=== PATIENT | male | born 1975 | race Caucasian/White ===

== ENCOUNTER 2020-01-26 00:27 | Emergency (ER) | payer MEDICAID, SELFPAY ==
--- NOTE | ~2020-01-26 | CT_ITS ---
EXAMINATION: CT brain wo con DATE: 01/26/2020 03:02 INDICATION: Headache TECHNIQUE: Computed tomography (CT) of the head was performed without intravenous contrast. Sagittal and coronal reconstructions were performed. The mA was adjusted according to patient size. Iterative reconstruction technique was employed. The dose-length product was 681.00 mGy-cm. COMPARISON: None FINDINGS: No acute intracranial hemorrhage, acute infarction or abnormal extra axial fluid collection. Ventricl es are normal and symmetric. No mass/mass effect. The orbits, paranasal sinuses and mastoid air cells are normal. IMPRESSION: 1. No acute intracranial process. Reviewed, dictated and finalized at location A.
[2020-01-26 00:28] VITALS: BP 187/128; PULSE 102; RESP 18; TEMP 36.1; O2SAT 98
[2020-01-26 01:16] VITALS: BP 148/98; PULSE 95; RESP 17; O2SAT 97
[2020-01-26 02:00] VITALS: BP 149/111; PULSE 88; RESP 17; O2SAT 99
[2020-01-26] MEDS: KETOROLAC (*BKC) 60 MG/2 ML VIAL IM (02:24)
[2020-01-26 02:26] VITALS: BP 156/107; PULSE 81; RESP 16; O2SAT 100
--- NOTE | 2020-01-26 03:49 | ED.HA ---
HPI - Headache General Chief Complaint: Headache Stated Complaint: headache for two days Time Seen by Provider: 01/26/20 01:58 History of Present Illness HPI Narrative: Patient is a 44-year-old male who presents ER with headache. Bitemporal. Intermittent. Worse with exertion. No change in vision or hearing. Occasional nausea. No photophobia or phonophobia. No trauma. No thunderclap sensation. Patient has chronic sinus disease but denies any recent change. Patient does report he has a bad tooth that was actually extracted earlier in the day. No additional jaw pain or swelling. Afebrile. Related Data Home Medications Medication Instructions Recorded Confirmed No Home Medications 01/26/20 01/26/20 Allergies Allergy/AdvReac Type Severity Reaction Status Date / Time No Known Allergies Allergy Unknown Verified 01/26/20 00:27 Review of Systems Review of Systems: All systems reviewed & are unremarkable except as noted in HPI and below Constitutional: Constitutional: Denies chills, Denies fever(s) and Denies weakness Eyes: Eyes: Denies change in vision and Denies photophobia ENT: Denies dizziness, Denies nasal congestion and Denies sore throat Comments: Recent dental procedure Gastrointestinal: Gastrointestinal: Denies nausea and Denies vomiting Neurologic: Denies dizziness, Reports headache(s), Denies focal weakness and Denies numbness PMFSH Past Medical History Medical History (Updated 01/26/20 @ 04:01 by Bryn Elizabeth MD) Sinusitis Surgical History Surgical History (Updated 01/26/20 @ 03:58 by Bryn Elizabeth MD) No pertinent past surgical history Social History Social History (Updated 01/26/20 @ 03:59 by Bryn Elizabeth MD) Smoking status: Current every day smoker Gender identity (if verbalized by the patient): Male Exam Narrative: Exam Narrative: GENERAL: Well-appearing, well-nourished, and in no acute distress. HEAD: Normocephalic, atraumatic. EYES: PERRL and EOMI. ENT: Mucous membranes moist. Healing tooth extraction site left lower jaw. CHEST: Clear to auscultation. No respiratory distress. HEART: Regular rate and rhythm. Normal peripheral pulses. NEURO: Alert and oriented x3. PSYCH: Normal mood and affect. Course Course Emergency Course: Headache resolved with Toradol IM. Discussed patient's elevated blood pressures recommend follow-up with PCP. Also discussed smoking cessation. Patient verbalized understanding. Vital Signs Vital signs: Vital Signs Temperature 97 F L 01/26/20 00:28 Pulse Rate 102 H 01/26/20 00:28 Respiratory Rate 18 01/26/20 00:28 Blood Pressure 187/128 H 01/26/20 00:28 Pulse Oximetry 98 01/26/20 00:28 Temperature 97 F L 01/26/20 00:28 Pulse Rate 81 01/26/20 02:26 Respiratory Rate 16 01/26/20 02:26 Blood Pressure 156/107 H 01/26/20 02:26 Pulse Oximetry 100 01/26/20 02:26 MDM - Headache Imaging Data Radiologist's impression: CT brain: No acute intracranial process. Discharge Plan Discharge Clinical Impression: Headache, Elevated blood pressure reading Patient Disposition: Home, Self-Care Condition: Stable Instructions: Tension Headache (ED) Additional Instructions: Return to the ER if you have fever over 100.4 ?F, you have chest pain or shortness of breath, cannot keep down food or water, you have additional concerns. Prescriptions: No Action No Home Medications RF: 0 Follow-up/Referrals: Ilia Richards Jr., MD [Physician] - 1 Week PHYSICIAN,MATERIALS HANDLING COORDINATOR [Primary Care Provider] -
[2020-01-26 04:12] VITALS: BP 144/86; PULSE 73; RESP 16; TEMP 36.7; O2SAT 97
== END 2020-01-26 04:13 | disposition home or self-care (01) ==
PROVIDERS: Emergency Provider Emergency Medicine
DX: R51 Headache (principal); R03.0 Elevated blood-pressure reading, without diagnosis of hypertension; F17.210 Nicotine dependence, cigarettes, uncomplicated
CPT/HCPCS: 70450; 96372; 99284; J1885

== ENCOUNTER 2021-04-09 12:42 | Outpatient (CLI) | payer OTHER, SELFPAY ==
--- NOTE | ~2021-04-09 | MR_ITS ---
EXAMINATION: MR brain/brain stem wo/w con DATE: 04/09/2021 14:10 INDICATION: Headache, unspecified. TECHNIQUE: Magnetic resonance imaging (MRI) of the brain and brainstem was performed without and with 20 mL MultiHance intravenous contrast. Sequences included sagittal and axial T1-weighted FSE, axial diffusion-weighted FS EPI, axial T2*-weighted GRE, axial T2-weighted FLAIR Propeller, and axial T2-we ighted Propeller. Postcontrast sequences included axial and coronal T1-weighted FSE. Apparent diffusi on coefficient (ADC) maps were created. COMPARISON: Head CT 01/26/20 FINDINGS: There are scattered areas of nonspecific increased T2-weighted signal intensity in the cere bral white matter, which is within normal limits for the patient's age. There is no intracranial hemo rrhage, acute infarction, or abnormal intracranial mass lesion. The ventricles are normal in size. Th e paranasal sinuses are clear. The orbits are normal. The mastoid air cells are normal. IMPRESSION: 1. Normal brain. Reviewed, dictated and finalized at location A. IMPRESSION: 1. Normal brain.
[2021-04-09 13:42] LABS: Estimated Glomerular Filt Rate > 60
== END 2021-04-09 12:43 | disposition home or self-care (01) ==
PROVIDERS: PCP Internal Medicine; Visit Provider Nurse Practitioner
DX: R51.9 Headache, unspecified (principal)
CPT/HCPCS: 70553; A9577

== ENCOUNTER 2021-05-09 08:01 | Outpatient (CLI) | payer OTHER, SELFPAY ==
[2021-05-09 08:14] LABS: Basophils Absolute Auto 0.1 K/mm3 (0.0-0.1); Basophils Percent Auto 0.7 % (0.2-1.2); Eosinophils Absolute Auto 0.4 K/mm3 (0-0.3); Eosinophils Percent Auto 2.8 % (0-4.4); Hematocrit 48.3 % (42.0-52.0); Immature Granulocyte Absolute 0.19 K/mm3 (0.00-0.031); Immature Granulocyte Percent A 1.4 % (0-0.5); Lymphocytes Percent Auto 34.3 % (18.3-44.2); Mean Corpuscular HGB Conc 33.1 g/dl (32-36); Mean Corpuscular Hemoglobin 29.3 pg (26-34); Mean Corpuscular Volume 88.5 fl (80-100); Mean Platelet Volume 8.6 fl (7.4-10.4); Monocytes Absolute Auto 1.3 K/mm3 (0.1-0.6); Neutrophils Absolute Auto 6.8 K/mm3 (1.3-6.7); Neutrophils Percent Auto 50.8 % (45.5-73.1); Platelet Count Result 340 k/mm3 (150-375); Red Blood Count 5.46 M/mm3 (4.6-6.20); Red Cell Distribution Width 13.2 % (11.5-14.5); White Blood Count 13.4 K/mm3 (4.5-10.0)
[2021-05-09 08:27] LABS: Alanine Aminotransferase 77 U/L (4-50); Albumin Level 4.6 g/dL (3.5-5.1); Alkaline Phosphatase 88 U/L (38-126); Anion Gap 8 mmol/L (8-16); Aspartate Amino Transferase 38 U/L (17-59); Bilirubin,Total 0.4 mg/dL (0.2-1.3); Blood Urea Nitrogen 13 mg/dL (9-20); Calcium 9.4 mg/dL (8.4-10.2); Carbon Dioxide 27 mmol/L (22-30); Chloride 105 mmol/L (98-107); Cholesterol 178 mg/dL (0-200); Estimated Glomerular Filt Rate > 60; Glucose 105 mg/dL (65-110); HDL Direct 30 mg/dL; Potassium 4.2 mmol/L (3.4-5.0); Sodium 140 mmol/L (137-145); Triglycerides 154 mg/dL (<150)
[2021-05-09 08:39] LABS: LDL Cholesterol Direct 132 mg/dL
== END 2021-05-09 08:02 | disposition home or self-care (01) ==
PROVIDERS: PCP Internal Medicine; Visit Provider Nurse Practitioner
DX: I10 Essential (primary) hypertension (principal)
CPT/HCPCS: 36415; 80053; 80061; 85025

== ENCOUNTER 2021-05-29 07:46 | Outpatient (CLI) | payer OTHER, SELFPAY ==
--- NOTE | ~2021-05-29 | US_ITS ---
EXAMINATION: US soft tissue abdomen EXAM DATE: 05/29/2021 08:53 INDICATION: R22.9 - Localized swelling, mass and lump, unspecified abdomen. TECHNIQUE: Multiple grayscale and Doppler images of the abdominal symptomatic regions were obtained ( by a technologist who performed the scan) and subsequently reviewed. There is no prior study for shavon patel. FINDINGS: Scanning in areas of patient's concern demonstrates the subcutaneous regions which are isoechoic to p atient's fat, could be encapsulated lipomas. These were measured at 1.7 x 1.6 x 0.8 cm, 6 x 7 x 7 mm, and possibly a 3rd measuring 1.9 x 1.0 x 1.9 cm. The underlying musculature is unremarkable. IMPRESSION: 3 focal abdominal subcutaneous regions which could be encapsulated lipomas. Reviewed, dictated and finalized at location B.
--- NOTE | ~2021-05-29 | US_ITS ---
EXAMINATION: US soft tissue UE RT EXAM DATE: 05/29/2021 08:53 INDICATION: R22.9 - Localized swelling, mass and lump, unspecified. TECHNIQUE: Multiple grayscale and Doppler images of the symptomatic right upper arm region were obtai renee (by a technologist who performed the scan) and subsequently reviewed. There is no prior study fo r comparison. FINDINGS: Scanning in the area of concern demonstrates a focal subcutaneous region which is isoechoic to the pearce rrounding fat, measuring 1.3 cm in thickness by about 4 cm in diameter. Appearance is most consistent with an encapsulated lipoma. IMPRESSION: Focal left arm lobulation of fat echogenicity which could be encapsulated lipoma. Reviewed, dictated and finalized at location B. IMPRESSION: Focal left arm lobulation of fat echogenicity which could be encaps ulated lipoma.
[2021-05-29 08:50] LABS: Basophils Absolute Auto 0.1 K/mm3 (0.0-0.1); Basophils Percent Auto 0.9 % (0.2-1.2); Eosinophils Absolute Auto 0.3 K/mm3 (0-0.3); Eosinophils Percent Auto 2.2 % (0-4.4); Hemoglobin 15.7 g/dL (14.0-18.0); Immature Granulocyte Absolute 0.26 K/mm3 (0.00-0.031); Immature Granulocyte Percent A 1.8 % (0-0.5); Lymphocytes Absolute Auto 4.25 K/mm3 (0.9-3.2); Lymphocytes Percent Auto 29.5 % (18.3-44.2); Mean Corpuscular HGB Conc 34.1 g/dl (32-36); Mean Corpuscular Hemoglobin 29.3 pg (26-34); Mean Platelet Volume 8.6 fl (7.4-10.4); Monocytes Absolute Auto 1.3 K/mm3 (0.1-0.6); Monocytes Percent Auto 9.2 % (2.6-8.5); Neutrophils Absolute Auto 8.1 K/mm3 (1.3-6.7); Neutrophils Percent Auto 56.4 % (45.5-73.1); Platelet Count Result 391 k/mm3 (150-375); Red Blood Count 5.35 M/mm3 (4.6-6.20); Red Cell Distribution Width 12.9 % (11.5-14.5); White Blood Count 14.4 K/mm3 (4.5-10.0)
[2021-05-29 09:49] LABS: Atypical Lymphocytes Present
== END 2021-05-29 07:47 | disposition home or self-care (01) ==
LOC: ANHIMG 07:53
PROVIDERS: PCP Internal Medicine; Visit Provider Nurse Practitioner
DX: D72.829 Elevated white blood cell count, unspecified (principal); R22.9 Localized swelling, mass and lump, unspecified
CPT/HCPCS: 36415; 76705; 76882; 85025

== ENCOUNTER 2021-08-29 13:32 | Outpatient (CLI) | payer OTHER, SELFPAY ==
[2021-08-29 14:24] LABS: Basophils Absolute Auto 0.1 K/mm3 (0.0-0.1); Basophils Percent Auto 0.9 % (0.2-1.2); Eosinophils Absolute Auto 0.2 K/mm3 (0-0.3); Eosinophils Percent Auto 1.8 % (0-4.4); Hematocrit 46.8 % (42.0-52.0); Hemoglobin 16.1 g/dL (14.0-18.0); Immature Granulocyte Absolute 0.21 K/mm3 (0.00-0.031); Immature Granulocyte Percent A 1.8 % (0-0.5); Lymphocytes Absolute Auto 3.17 K/mm3 (0.9-3.2); Lymphocytes Percent Auto 27.4 % (18.3-44.2); Mean Corpuscular HGB Conc 34.4 g/dl (32-36); Mean Corpuscular Hemoglobin 29.3 pg (26-34); Mean Corpuscular Volume 85.1 fl (80-100); Mean Platelet Volume 8.8 fl (7.4-10.4); Monocytes Absolute Auto 1.1 K/mm3 (0.1-0.6); Monocytes Percent Auto 9.8 % (2.6-8.5); Neutrophils Absolute Auto 6.7 K/mm3 (1.3-6.7); Neutrophils Percent Auto 58.3 % (45.5-73.1); Platelet Count Result 340 k/mm3 (150-375); Red Cell Distribution Width 12.5 % (11.5-14.5); White Blood Count 11.6 K/mm3 (4.5-10.0)
[2021-08-29 14:41] LABS: Alanine Aminotransferase 89 U/L (4-50); Albumin Level 4.5 g/dL (3.5-5.1); Alkaline Phosphatase 93 U/L (38-126); Anion Gap 9 mmol/L (8-16); Aspartate Amino Transferase 52 U/L (17-59); Bilirubin,Total 0.8 mg/dL (0.2-1.3); Blood Urea Nitrogen 13 mg/dL (9-20); CRP 0.6 mg/dL (<1.0); Calcium 9.4 mg/dL (8.4-10.2); Carbon Dioxide 29 mmol/L (22-30); Chloride 101 mmol/L (98-107); Estimated Glomerular Filt Rate > 60; Glucose 114 mg/dL (65-110); Potassium 4.5 mmol/L (3.4-5.0); Sodium 139 mmol/L (137-145)
[2021-08-29 14:49] LABS: Erythrocyte Sedimentation Rate 1 mm/hr (0-20)
[2021-09-01 15:26] LABS: BCR/abl Prior Result Not Given
[2021-09-01 16:12] LABS: BCR/abl P190 Not Detected; BCR/abl P210 Not Detected
[2021-09-01 16:13] LABS: BCR/abl P190 Chg YES; BCR/abl P210 Chg YES
== END 2021-08-29 13:33 | disposition home or self-care (01) ==
LOC: ANHLAB 13:34
PROVIDERS: PCP Internal Medicine; Visit Provider Internal Medicine Hematology & Oncology
DX: D72.829 Elevated white blood cell count, unspecified (principal)
CPT/HCPCS: 36415; 80053; 81206; 81207; 85025; 85652; 86140; 88184

== ENCOUNTER 2023-12-07 22:38 | Observation (INO) | payer OTHER, SELFPAY ==
--- NOTE | ~2023-12-07 | XR_ITS ---
EXAMINATION: XR chest 1V portable DATE: 12/07/2023 23:22 INDICATION: Weakness. TECHNIQUE: A single frontal view of the chest was obtained. COMPARISON: Chest single view 12/14/2012 FINDINGS: There is no pneumonia, pleural effusion, or pneumothorax. The heart size is normal. IMPRESSION: 1. No acute cardiopulmonary disease. Reviewed, dictated and finalized at location A.
--- NOTE | ~2023-12-07 | CT_ITS ---
EXAMINATION: CTA brain carotid DATE: 12/07/2023 23:15 INDICATION: Left hemiparesis. TECHNIQUE: Computed tomographic angiography (CTA) of the head was performed with 100 mL Omnipaque-350 intravenous contrast. CTA of the neck was performed with intravenous contrast. Automated exposure co ntrol and iterative reconstruction technique were employed. The dose-length product was 1275.34 mGy-c m. Maximum intensity projection and volume rendered 3D-reconstructions were created by the technInfopiai st on a separate workstation. COMPARISON: Head CT 12/07/2023 FINDINGS: HEAD CTA: There is no intracranial hemorrhage, acute infarction, or abnormal intracranial mass lesion . The ventricles are normal in size. The orbits are normal. There is mild mucosal thickening in the p aranasal sinuses. The mastoid air cells are normal. The vertebral arteries are codominant. There is n o significant stenosis of basilar artery or the posterior cerebral arteries. There is no significant stenosis of the intracranial internal carotid arteries or anterior or middle cerebral arteries. Anter ior communicating artery is normal. The posterior communicating arteries are normal. There is no aneu rysm. NECK CTA: There are no pathologically enlarged lymph nodes. There is multifocal dental disease. There is no significant stenosis of the vertebral arteries. There is mild plaque in the proximal internal carotid arteries. There is 0% stenosis of the proximal right internal carotid artery relative to norm al distal artery lumen diameter (NASCET criteria). There is 0% stenosis of the proximal left internal carotid artery relative to normal distal artery lumen diameter. There is mild cervical spondylosis. IMPRESSION: 1. Normal brain. No aneurysm or significant intracranial canal stenosis. 2. 0% stenosis of the proximal internal carotid arteries relative to normal distal artery lumen diame ters (NASCET criteria). 3. Extensive dental disease. Reviewed, dictated and finalized at location A. IMPRESSION: 1. Normal brain. No aneurysm or significant intracranial canal stenosis. 2. 0% stenosis of the proximal internal carotid arteries relative to normal dis alessia artery lumen diameters (NASCET criteria). 3. Extensive dental disease.
--- NOTE | ~2023-12-07 | MR_ITS ---
MRI of the brain Clinical History: CVA Technique: Axial and sagittal T1-weighted images were acquired. These were followed by axial T2-weigh praneeth, diffusion weighted, gradient, and FLAIR images. COMPARISON: 04/09/2021 Findings: There is a 1.3 x 1.1 cm area of acute infarct involving the right thalamus and/or posterior limb of the external capsule. No intracranial hemorrhage identified. There are minimal chronic backg round white matter changes in the periventricular white matter otherwise. Ventricles and subarachnoid spaces are unremarkable. Orbits are unremarkable. Paranasal sinuses and m astoid air cells are clear. Major intracranial flow voids are intact. Sagittal midline structures are intact. IMPRESSION: 1.3 x 1.1 cm acute infarct involving the right thalamus and/or posterior limb of the right external c apsule. Minimal background chronic white matter changes. Reviewed, dictated and finalized at location . IMPRESSION: 1.3 x 1.1 cm acute infarct involving the right thalamus and/or posterior limb o f the right external capsule. Minimal background chronic white matter changes.
--- NOTE | ~2023-12-07 | CT_ITS ---
EXAMINATION: CT brain wo con DATE: 12/07/2023 22:57 INDICATION: Numbness in the extremities. Left-sided weakness. TECHNIQUE: Computed tomography (CT) of the head was performed without intravenous contrast. The mA wa s adjusted according to patient size. Iterative reconstruction technique was employed. The dose-lengt h product was 681.00 mGy-cm. COMPARISON: Head CT 01/26/2020 FINDINGS: There is no intracranial hemorrhage, acute infarction, or abnormal intracranial mass lesion . The ventricles are normal in size. The orbits are normal. There is mild mucosal thickening in the p aranasal sinuses. The mastoid air cells are normal. IMPRESSION: 1. Normal brain. Reviewed, dictated and finalized at location A. IMPRESSION: 1. Normal brain.
--- NOTE | ~2023-12-07 | US_ITS ---
EXAMINATION: US right upper quadrant DATE: 12/08/2023 15:05 INDICATION: Elevated ALT TECHNIQUE: Multiple grayscale and Doppler ultrasound images of the abdomen were obtained. COMPARISON: None FINDINGS: The region of the pancreas is obscured. Visualized portions of the abdominal aorta appear normal in c aliber. The visualized proximal inferior vena cava appears normal. Liver has normal contour, with a s mooth surface. There is increased parenchymal echogenicity and coarsened echotexture with poor acoust ic penetration consistent with diffuse hepatic steatosis. Typical small geographic regions of more hy poechoic focal fatty sparing along the gallbladder fossa. There is also a 1.4 similar anechoic hepati c cyst. No intrahepatic biliary duct dilation suspected. Portal venous flow was seen in the hepatopet al, normal direction and has normal Doppler waveform. The gallbladder is normal in appearance. There is no cholelithiasis. The common bile duct measures 4 mm, which is normal. Sonographic Fuentes sign w as reported as negative by the dispatcher relay. IMPRESSION: 1. Diffuse hepatic steatosis. No cholelithiasis or intra- or extrahepatic biliary ductal dilation. Reviewed, dictated and finalized at location A. IMPRESSION: 1. Diffuse hepatic steatosis. No cholelithiasis or intra- or extrahepatic bilia ry ductal dilation.
--- NOTE | 2023-12-07 22:41 | ECG_ITS ---
SEE SCANNED COPY FOR CONFIRMED REPORT MTDD
[2023-12-07 22:44] LABS: Glucose Point of Care 152 mg/dl (65-105)
[2023-12-07 22:59] LABS: Estimated Glomerular Filt Rate > 60
--- NOTE | 2023-12-07 22:59 | ED.GENADULT ---
HPI - General Adult General Chief complaint: Neuro Symptoms/Deficit Stated complaint: Left sided cant control Time Seen by Provider: 12/07/23 22:45 History of Present Illness HPI narrative: Patient 48-year-old gentleman presents emergency department with chief complaint of left lower extremity weakness. Patient reports around 5:00 p.m. yesterday he had an episode where his left leg started feeling heavy and not really were the patient reports that he laid down his symptoms improved patient reports that he thinks most of his symptoms had resolved but was complete was unsure patient states around 7:00 p.m. tonight he noticed that his left leg was difficulty use. The patient states that upon arrival to the emergency department his symptoms were starting to improve from what they were at home patient reports no prior history of stroke. Related Data Allergies Allergy/AdvReac Type Severity Reaction Status Date / Time No Known Allergies Allergy Unknown Verified 12/07/23 23:29 Review of Systems Review of Systems: A 10 system review of systems was completed on the patient and is negative except for what is stated in the HPI. Nursing and ancillary documentation was reviewed. [facility] Past Medical History Medical History Chronic sinusitis GERD (gastroesophageal reflux disease) Headache Sinusitis Surgical History Surgical History No pertinent past surgical history Family History Family History Father Alcoholism Mother Heart disease Thyroid disorder Tuberculosis As A Child Sibling Diabetes mellitus Grandparent Asthma Hypertension Social History Social History Social History: Caffeine-daily Smoking packs per day: 1 Smoking cigarettes per day: 20.0 Years smoked: 30 Smoking pack-years: 30.00 Smoking status: Current every day smoker Alcohol intake: current Alcohol use details: brock Lack of Transportation: No Lack of Food: Never True Current Housing: I Have Housing Concerned About Future Housing: No Difficulty Paying Gas/Electric Bills: No Difficulty Paying for Meds: No Currently Unemployed: No Education: High School Diploma/GED Difficulty w/ Childcare or Family Care: No Living arrangements: with family Gender identity (if verbalized by the patient): Male Exam Narrative: GENERAL: Well-appearing, well-nourished, and in no acute distress. HEAD: Normocephalic, atraumatic. EYES: PERRLA and EOMI. ENT: Nares clear, no rhinorrhea or epistaxis. Mucous membranes moist. NECK: Supple. CHEST: Clear to auscultation. No respiratory distress. HEART: Regular rate and rhythm. No murmur heard. Normal peripheral pulses. ABDOMEN: Soft, nontender, nondistended, normal active bowel sounds. EXTREMITIES: Normal range of motion. No edema. SKIN: Warm, dry, no rash. NEURO: No focal deficits. Alert and oriented x3. NIH stroke scale is 8 PSYCH: Normal mood and affect. Course Vital Signs Vital signs: Vital Signs Temperature 36.7 C 12/07/23 23:06 Pulse Rate 105 H 12/07/23 23:06 Respiratory Rate 19 12/07/23 23:06 Pulse Oximetry 97 12/07/23 23:06 Oxygen Delivery Room Air 12/07/23 23:06 Temperature 36.7 C 12/07/23 23:06 Pulse Rate 98 12/08/23 00:20 Respiratory Rate 18 12/08/23 00:20 Blood Pressure 190/132 H 12/08/23 00:20 Pulse Oximetry 98 12/08/23 00:20 Oxygen Delivery Room Air 12/07/23 23:06 Medical Decision Making [facility] Narrative Medical decision making narrative: Differential diagnosis includes CVA, large vessel occlusion, Patient's last known well most likely region it is back to the 5:00 p.m. yesterday episode. Even if going by the 7:00 p.m. episode today the patient is outside o
[2023-12-07 23:06] VITALS: PULSE 105; RESP 19; TEMP 36.7; O2SAT 97
[2023-12-07 23:15] VITALS: BP 182/108; PULSE 102; PULSE 107; RESP 21; O2SAT 95; O2SAT 98
[2023-12-07 23:19] LABS: Alanine Aminotransferase 67 U/L (6-50); Albumin Level 4.7 g/dL (3.5-5.1); Alkaline Phosphatase 109 U/L (38-126); Anion Gap 4 mmol/L (4-12); Aspartate Amino Transferase 37 U/L (17-59); Bilirubin,Total 0.6 mg/dL (0.2-1.3); Blood Urea Nitrogen 15 mg/dL (9-20); Calcium 9.4 mg/dL (8.4-10.2); Carbon Dioxide 29 mmol/L (22-30); Chloride 105 mmol/L (98-107); Estimated CRCL calculation 125 ml/min; Estimated Glomerular Filt Rate > 60; Glucose 123 mg/dL (65-110); Potassium 4.1 mmol/L (3.4-5.0); Sodium 138 mmol/L (137-145)
[2023-12-07 23:27] LABS: Basophils Absolute Auto 0.1 K/mm3 (0.0-0.1); Basophils Percent Auto 0.6 % (0.2-1.2); Eosinophils Absolute Auto 0.3 K/mm3 (0-0.3); Eosinophils Percent Auto 1.7 % (0-4.4); Hematocrit 52.4 % (42.0-52.0); Hemoglobin 17.6 g/dL (14.0-18.0); Immature Granulocyte Absolute 0.16 K/mm3 (0.00-0.031); Lymphocytes Absolute Auto 2.94 K/mm3 (0.9-3.2); Lymphocytes Percent Auto 18.1 % (18.3-44.2); Mean Corpuscular HGB Conc 33.6 g/dl (32-36); Mean Corpuscular Hemoglobin 28.7 pg (26-34); Mean Corpuscular Volume 85.5 fl (80-100); Mean Platelet Volume 9.4 fl (7.4-10.4); Monocytes Percent Auto 6.4 % (2.6-8.5); Neutrophils Absolute Auto 11.7 K/mm3 (1.3-6.7); Neutrophils Percent Auto 72.2 % (45.5-73.1); Platelet Count Result 384 k/mm3 (150-375); Red Blood Count 6.13 M/mm3 (4.6-6.20); Red Cell Distribution Width 12.8 % (11.5-14.5); White Blood Count 16.2 K/mm3 (4.5-10.0)
[2023-12-07 23:31] LABS: Troponin I < 0.012 ng/mL (0.000-0.034)
[2023-12-07 23:37] LABS: INR 0.9; Prothrombin Time 12.8 Seconds (11.1-14.7)
[2023-12-07 23:38] LABS: Partial Thromboplastin Time 32.5 Seconds (22.3-36.8)
[2023-12-08] VITALS (17 sets, daily range): BP systolic 155–200; BP diastolic 85–141; PULSE 59–109; RESP 15–22; TEMP 36.1–36.6; O2SAT 93–98; BMI 40.8
--- NOTE | 2023-12-08 00:20 | PC.NURSE ---
EDP aware of pt continuous elevated BP. No further orders at this time.
--- NOTE | 2023-12-08 01:18 | PC.NURSE ---
This patient, John Adams, was admitted to IMU Room 202-. Patient/family oriented to hospital policies and general routines including ID bracelet, bed and alarms, visiting hours, pain management, procedures, bathroom and other care routines, personal items, smoking policy, room service/diet, and visiting hours. Information on how to activate the Rapid Response Team has been discussed. Patient/Family are encouraged to report perceived risks to care and to ask questions if they do not understand what they are told or what they should do.
[2023-12-08] MEDS: ASPIRIN 81 MG CHEWABLE TABLET 324 MG PO (02:10)
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
[2023-12-08 05:31] LABS: Cholesterol 190 mg/dL (0-200); HDL Direct 32 mg/dL; Triglycerides 137 mg/dL (<150)
[2023-12-08 05:39] LABS: Hemoglobin A1C 5.7 % (<5.7)
[2023-12-08 05:42] LABS: LDL Cholesterol Direct 133 mg/dL
[2023-12-08] MEDS: ASPIRIN 325 MG TABLET PO (08:58)
[2023-12-08] MEDS: LOSARTAN POTASSIUM 50 MG TABLET PO (08:59)
[2023-12-08] MEDS: ATORVASTATIN 10 MG TABLET PO (08:59)
--- NOTE | 2023-12-08 09:36 | PM.IMPN ---
Progress Note: A&P Assessment and Plan (1) Cerebrovascular accident: Qualifiers: CVA mechanism: unspecified Qualified Code(s): I63.9 - Cerebral infarction, unspecified Code(s): I63.9 - Cerebral infarction, unspecified Status: Acute Assessment and Plan: Likely etiology uncontrolled hypertension, cigarette smoking, hypercholesterolemia, possible impaired glucose tolerance, methamphetamine use Continue aspirin, add atorvastatin Restarted losartan Encouraged abstinence from methamphetamine and other stimulants PT/OT (2) Hypertension: Qualifiers: Hypertension type: primary hypertension Qualified Code(s): I10 - Essential (primary) hypertension Code(s): I10 - Essential (primary) hypertension Status: Acute Assessment and Plan: Home dose of losartan 50 mg daily restarted Permissive hypertension in the setting acute stroke (3) Hyperlipidemia: Qualifiers: Hyperlipidemia type: unspecified Qualified Code(s): E78.5 - Hyperlipidemia, unspecified Code(s): E78.5 - Hyperlipidemia, unspecified Status: Acute Assessment and Plan: 12/07 is start atorvastatin (4) Elevated ALT measurement: Code(s): R74.01 - Elevation of levels of liver transaminase levels Status: Acute Assessment and Plan: Chronic History of gonorrhea so at high risk for chronic viral infections, screening ordered 5/5 RUQ u/s (5) Impaired glucose tolerance: Code(s): R73.02 - Impaired glucose tolerance (oral) Status: Acute Assessment and Plan: A1c 5.7 5/5 carbohydrate restriction initiated Subjective Date/time seen: 12/08/23 09:36 Interval history: Admitted 12/05 with left-sided weakness. Feels stronger and left side today. No difficulty speaking or swallowing. Denied chest pain shortness of breath GI or complaints. Denied abnormal bleeding. Admits to non adherence to blood pressure medicine. Admits to smoking 1 pack per day. Admits to using methamphetamine intermittently with the last use within the week. Review of Systems Review of Systems: All systems reviewed & are unremarkable except as noted in HPI and below Exam Narrative: HEENT: PERRL, sclerae nonicteric, pharyngeal mucosa pink and intact NECK: No JVD CHEST: Clear to auscultation. Normal effort. HEART: NL S1/S2, regular, no murmur ABDOMEN: BS+, protuberant but soft, nontender, no mass, no bruits EXTREMITIES: No cyanosis, edema, or clubbing NEUROLOGIC: CN intact and symmetric to inspection. DTR'S SLIGHTLY INCREASED LEFT BICEPS VS RIGHT, OTHERWISE SYMMETRIC. BABINSKI NEGATIVE. MILD DRIFT AND MODERATE FIX LUE. MILD DIFFICULTY WITH FTN ON LEFT. MUSCULOSKELETAL: No gross deformity to visual inspection. PSYCH: Alert. Oriented to person, place, and time. Objective Data Vital Signs Vital Signs: Vital Signs - 24 hr 12/07/23 23:06 12/07/23 23:15 12/07/23 23:15 Temperature 98.0 F Pulse Rate 105 H 102 H Respiratory Rate 19 21 H Blood Pressure 182/108 H Pulse Oximetry 97 95 98 Oxygen Delivery Room Air 12/07/23 23:15 12/08/23 00:20 12/08/23 01:10 Temperature Pulse Rate 107 H 98 99 Respiratory Rate 18 22 H Blood Pressure 190/132 H 200/99 H Pulse Oximetry 98 98 Oxygen Delivery 12/08/23 01:29 12/08/23 01:30 12/08/23 01:26 Temperature 97.7 F Pulse Rate 95 99 Respiratory Rate 16 Blood Pressure 185/111 H Pulse Oximetry 97 Oxygen Delivery Room Air 12/08/23 04:00 12/08/23 04:00 12/08/23 04:00 Temperature 97.8 F Pulse Rate 83 81 Respiratory Rate 15 Blood Pressure 180/121 H Pulse Oximetry 98 Oxygen Delivery Room Air 12/08/23 06:00 12/08/23 07:49 12/08/23 08:00 Temperature 97.0 F L Pulse Rate 79 92 106 H Respiratory Rate 22 H Blood Pressure 163/141 H Pulse Oximetry 94 Oxygen Delivery 12/08/23 08:00 12/08/23 08:46 Temperature Pulse Rate Respiratory Rate Blood Pressure
--- NOTE | 2023-12-08 10:10 | PCSTNOTE ---
Please refer to the Bedside Swallow Evaluation in the EMR. Please note, silent aspiration cannot be ruled out at bedside.
[2023-12-08 10:14] LABS: Iron 73 ug/dL (49-181)
[2023-12-08 10:23] LABS: Percent Iron Saturation 22 % (20-50)
[2023-12-08 10:36] LABS: Erythrocyte Sedimentation Rate 1 mm/hr (0-20)
[2023-12-08 10:55] LABS: HIV 1/2 Ab P24 Ag Result Negative (Negative)
--- NOTE | 2023-12-08 11:09 | WPDNEURCNPN ---
Assessment and Plan Assessment and plan (1) Cerebrovascular accident: Qualifiers: CVA mechanism: unspecified Qualified Code(s): I63.9 - Cerebral infarction, unspecified Code(s): I63.9 - Cerebral infarction, unspecified Status: Acute (2) Tobacco abuse: Code(s): Z72.0 - Tobacco use Status: Acute (3) Hyperlipidemia: Qualifiers: Hyperlipidemia type: unspecified Qualified Code(s): E78.5 - Hyperlipidemia, unspecified Code(s): E78.5 - Hyperlipidemia, unspecified Status: Acute (4) Hypertension: Qualifiers: Hypertension type: primary hypertension Qualified Code(s): I10 - Essential (primary) hypertension Code(s): I10 - Essential (primary) hypertension Status: Acute Plan Mr. Grijalva is a year old male with a history of untreated HTN, HLD, and chronic smoking presenting due to L sided weakness and ataxia. Concern for acute stroke. CTA brain/carotid did not show any significant vessel disease. He was quite hypertensive on admission so lacunar stroke is a possibility. - Start Aspirin 81mg daily - Start Plavix 75mg daily, duration of treatment will dependent on distribution/etiology of stroke - Increase Lipitor to at least 40mg daily - Obtain surface echo with bubble study - Discussed importance of smoking cessation - Will check hypercoagulability labs given young age Consult date: 12/08/23 Reason for consult: Concern for acute stroke HPI: John Adams is a 48 year old male with a history of chronic smoking, HTN, and HLD presenting due to inability to control his left leg. Patient's LKW appears to be around 1700 on 12/06/23 when he noted that his L leg felt heavy and difficult to 'control'. He went to lie down and his symptoms self resolved when he got up. However, the following day, 12/07/23 around 1900 he again felt like his left leg was difficult to use. He presented to the ER around 2300 on the . In the ER he was noted to have evidence of LUE weakness, facial asymmetry, and difficulty with FNF on the left side. His initial BP was 190/132. His NIH score at the time was documented as 8. He was outside the window for thrombolytic. EKG showed sinus tachycardia. CT head showed no acute changes. CTA brain/carotid was unrevealing as well. Some of his symptoms had resolved by the time of admission, but still some weakness of the L side. He denies any history of hypercoagulability in the family. Review of Systems Review of Systems: All systems reviewed & are unremarkable except as noted in HPI and below PMFSH Past Medical History Medical History Chronic sinusitis Essential hypertension GERD (gastroesophageal reflux disease) Hyperlipidemia Impaired glucose tolerance Morbid obesity with BMI of 40.0-44.9, adult Sinusitis Tobacco abuse Surgical History Surgical History History of hernia repair History of repair of laceration Patient had his surgery for repair of a large area of laceration to his lateral right scalp History of sinus surgery History of tonsillectomy and adenoidectomy History of tympanostomy tube placement Family History Family History Father Alcoholism Mother Heart disease Thyroid disorder Tuberculosis As A Child Sibling Diabetes mellitus Grandparent Asthma Hypertension Social History Social History Social History: The patient is currently from his of 24 years. They had 4 children ranging in ages between 19 and 23 years old. 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 He and his 19-year-old daughter are living with his mother. He has a pit bull. He still smokes 1 pack of cigarettes per day. He smoked as much as 1.5 packs of cigarettes p
[2023-12-08 11:51] LABS: Hepatitis B Surface Anti Res Negative; Hepatitis C Virus Antibody Negative (Negative)
[2023-12-08] MEDS: hydrALAZINE HCL 20 MG/ML VIAL 10 MG IV PUSH (12:56)
[2023-12-08 14:45] LABS: CRP 0.6 mg/dL (<1.0)
[2023-12-08 15:03] LABS: D Dimer 0.44 ug/mL (<0.48)
--- NOTE | 2023-12-08 15:44 | PC.NURSE ---
This patient, John Adams, was received from [facility] on 12/08/23 at 1544. Patient/family oriented to unit policies and routines
--- NOTE | 2023-12-08 15:47 | PC.NURSE ---
Pt transferred to room 342 via bed. Report given to Joshua CARLSON
[2023-12-08 16:43] LABS: Barbiturate Screen Urine Negative (Negative); Benzodiazepines Screen Urine Negative (Negative)
[2023-12-08 17:18] LABS: Amphetamine Screen Urine Negative (Negative); Cannabinoid Screen Urine Negative (Negative); Cocaine Screen Urine Negative (Negative); Methadone Screen Urine Negative (Negative); Opiate Screen Urine Negative (Negative); Phencyclidine Screen Urine Negative (Negative)
[2023-12-08] MEDS: ACETAMINOPHEN 325 MG TABLET 650 MG PO (23:05)
[2023-12-09] VITALS (9 sets, daily range): BP systolic 157–196; BP diastolic 99–126; PULSE 59–107; RESP 18; TEMP 36.7; O2SAT 95–98
--- NOTE | 2023-12-09 | ECHO_ITS ---
Patient Info Name: John Adams Age: 48 years : 1975 Gender: Male Ht: 72 in Wt: 303 lbs BSA: 2.70 m2 HR: 73 bpm BP: 170 / 116 mmHg Heart Rhythm: Sinus Rhythm Technical Quality: Fair Exam Date: 12/09/2023 10:49 AM Exam Location: Echo Lab Patient Status: Outpatient Admit Date: 12/08/2023 Staff Ordering Physician: Margie Ireland DO Solar Hot Water Installer: Jewell Harris RDCS Attending Provider: Margie Ireland DO Referring Physician: Shu OCHOA; Exam Type: CA echo dop bubble study w con Study Info Indications - Acute stroke Complete two-dimentional, color flow and Doppler transthoracic echocardiogram is performed with agitated saline and with contrast to opacify the left ventricle and to improve the delineation of the left ventricle endocardial borders. Contrast/Agitated Saline Contrast/Ag. Saline: Definity Amount: 2.00 ml Administered By: Jewell Harris RDCS Existing IV Access: Yes IV Access Condition: patent with no signs of infiltration Contrast/Ag. Saline: Agitated Saline Amount: 14.00 ml Existing IV Access: Yes IV Access Condition: patent with no signs of infiltration Summary 1. Definity contrast administered improved wall motion interpretation. 2. Left ventricular chamber dimension is normal. 3. Left ventricular systolic function is normal, estimated at 65-70%. 4. There is mild concentric increased left ventricular wall thickness. 5. The left ventricular diastolic function is abnormal. 6. E/e' 12 is mildly elevated. 7. Left atrial chamber dimension is mildly enlarged. Left Ventricle E/e' 12 is mildly elevated. Definity contrast administered improved wall motion interpretation. Left ventricular chamber dimension is normal. Left ventricular systolic function is normal, estimated at 65-70%. There is mild concentric increased left ventricular wall thickness. The left ventricular diastolic function is abnormal. Right Ventricle Right ventricular chamber dimension is normal. Right ventricular systolic function is normal. Left Atria Left atrial chamber dimension is mildly enlarged. Right Atria Right atrial chamber dimension is normal. Atrial Septum Agitated saline injection with and without vasalva maneuver opacified right side cardiac chambers without shunt to left side cardiac chambers. Intact interatrial septum visualized by 2D and agitated saline imaging. Aortic Valve The aortic valve is trileaflet. There is no aortic valve stenosis. There is no aortic valve regurgitation. Pulmonic Valve There is no pulmonic regurgitation. Mitral Valve There is no mitral valve stenosis. There is no mitral valve regurgitation. Tricuspid Valve There is no tricuspid valve regurgitation. Pericardium/Pleural There is no pericardial effusion. Inferior Vena Cava Normal inferior vena cava with >50% collapse upon inspiration consistent with normal right atrial pressure, 5 mmHg. Aorta The aortic root size at the sinus of Valsalva is normal. Tricuspid Valve Name Value Normal Estimated PAP/RSVP RA Pressure 5 mmHg <=5 Report Signatures
[2023-12-09] MEDS: hydrALAZINE HCL 20 MG/ML VIAL 10 MG IV PUSH ×2 (05:56→12:37)
[2023-12-09] MEDS: ACETAMINOPHEN 325 MG TABLET 650 MG PO (05:57)
--- NOTE | 2023-12-09 06:18 | PC.NURSE ---
PATIENT TO MRI VIA WHEELCHAIR. TELEMETRY ON STANDBY AT THIS TIME.
[2023-12-09] MEDS: ATORVASTATIN 10 MG TABLET PO (08:28)
[2023-12-09] MEDS: ASPIRIN 81 MG CHEWABLE TABLET PO (08:28)
[2023-12-09] MEDS: LOSARTAN POTASSIUM 50 MG TABLET PO (08:28)
[2023-12-09] MEDS: PERFLUTREN LIPID MICROSPHERES 1.5 ML VIAL DILUTED TO 10 ML TOTAL VOLUME IV PUSH (11:20)
--- NOTE | 2023-12-09 12:02 | IVDEFINITY ---
Prior to administration of IV Definity the patient was educated on the risks and benefits of the imaging enhancing agent including potential adverse side effects. The patient verbalized understanding. Allergies were verified. No exclusion criteria were identified and at least one of the following inclusion criteria were met: 1) physician request, 2) patient technically difficult to image (per the [place] [employer] Echocardi[employer] guidelines of two or more segments not discernable within the apical view), or 3) questionable left ventricular function. ?
[2023-12-09] MEDS: amLODIPine BESYLATE 5 MG TABLET PO (12:43)
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
[2023-12-10 10:49] LABS: Homocysteine 8.7 umol/L (<11.4)
[2023-12-10 19:07] LABS: Lupus dRVVT Screen 35 sec (< OR = 45); PTT-LA Screen 40 sec (< OR = 40)
[2023-12-11 19:14] LABS: Factor VIII Activity 51 % normal (50-180)
[2023-12-11 23:53] LABS: Anti Cardio Antibody IgM 4.6 MPL-U/mL; Anti Cardiolipin Antibody IgA <2.0 APL-U/mL; Anti Cardiolipin Antibody IgG <2.0 GPL-U/mL
[2023-12-12 07:48] LABS: APC Ratio 1.8 ratio (>=2.1)
[2023-12-12 07:58] LABS: Antithrombin III Activity 98 % normal (80-135)
[2023-12-16 14:18] LABS: Factor V (Leiden) Mutation POSITIVE
[2023-12-16 17:14] LABS: Lipoprotein A 11 nmol/L
== END 2023-12-09 15:28 | disposition home or self-care (01) ==
LOC: ANHED 12-08 00:44 → ANHIMU 12-08 02:54 → ANH3MED 12-09 14:50 → ANHIMU 12-10 08:10
PROVIDERS: Internal Medicine; Student in an Organized Health Care Education/Training Program; Admitting Provider Internal Medicine; Emergency Provider Emergency Medicine; PCP Internal Medicine; Visit Provider Family Medicine
DX: I63.9 Cerebral infarction, unspecified (principal); R74.01 Elevation of levels of liver transaminase levels; R73.02 Impaired glucose tolerance (oral); I10 Essential (primary) hypertension; E78.5 Hyperlipidemia, unspecified; E66.01 Morbid (severe) obesity due to excess calories; Z68.41 Body mass index [BMI] 40.0-44.9, adult; F17.210 Nicotine dependence, cigarettes, uncomplicated; Z79.51 Long term (current) use of inhaled steroids; Z91.148 Patient's other noncompliance with medication regimen for other reason; Z11.4 Encounter for screening for human immunodeficiency virus [HIV]; Z79.899 Other long term (current) drug therapy
CPT/HCPCS: 36415; 70450; 70496; 70498; 70551; 71045; 76705; 80053; 80061; 80307; 81240; 81241; 81291; 82948; 83036; 83090; 83540; 83550; 83695; 84484; 85025; 85240; 85250; 85260; 85300; 85303; 85306; 85307; 85380; 85610; 85613; 85652; 85730; 86140; 86147; 86703; 86706; 86803; 92610; 93005; 94762; 96374; 96375; 96376; 97110; 97162; 97165; 97530; 97535; 99285; A9270; C8929; G0378; G0379; G0432; J0360; Q9957; Q9967

== ENCOUNTER 2024-01-02 09:27 | Outpatient (CLI) | payer OTHER, SELFPAY ==
--- NOTE | 2024-01-26 23:02 | WPDSLEEPSTUD ---
Sleep Study Date of Study: 01/02/24 Ordering Provider: Marisela Harrell NP Interpreting Physician: Maura Kohler MD Sleep Study Type: Split Polysomnogram Height: 1.83 m Weight: 136.078 kg Body Mass Index: 40.6 Neck Circumference (inches): 21.5 [place]: 3 Reason for Sleep Study Loud snoring, witnessed apneas Sleep History John Adams is a 48-year-old man with a stroke due to high blood pressure. While he was in the hospital, staff members questioned him about having sleeping issues because of his loud snoring. He has witnessed apneas. There is a family history of sleep issues, his mother has sleep apnea. He never awakens from sleep feeling short of breath. He rarely wakes at night with heartburn, belching or coughing.??He occasionally snores, occasionally snores loudly enough that others complain. He never has trouble sleeping when he has a cold. He never wakes up gasping for breath during the night. He never has breathing problems at night witnessed by others. He rarely sweats excessively at night. He never notices his heart pounding or beating irregularly during the night. He never falls asleep during the day. He never falls asleep involuntarily, never falls asleep while driving. He never experiences loss of muscle tone with strong emotion. He never has daytime difficulty at work due to excessive sleepiness. He never feels paralyzed on waking or falling asleep. He never experiences vivid dreams upon waking or falling asleep. He never feels afraid of going to sleep. He never has nightmares. He occasionally recalls his dreams. He rarely has thoughts racing through his mind. He never feels sad or depressed. He rarely feels anxiety. He frequently notices parts of his body jerk. He occasionally kicks during the night. He never feels crawling or aching feelings in his legs. He frequently feels leg pain at night. He never has morning jaw pain, never grinds his teeth at night. He occasionally feels bothered by pain during the day, rarely awakened by pain during the night. He rarely wakes up feeling stiff in the morning, and he rarely wakes feeling sore or achy. He rarely awakens with pain in his neck, spine, or joints. Normal bedtime is between 12 midnight and 2:00 a.m., falling asleep within a few minutes, waking once or twice times at night to go to the bathroom and then sometimes smokes a cigarette, returning to sleep within 5 minutes. Wake time typically around 7:00 a.m.. He estimates getting between 6 and 10 hours of sleep at night. He generally does not take naps in the day. However, a short nap lasting 10-15 minutes may be refreshing. Habits:??Tobacco: Currently a half pack per day Caffeine: 44 oz soda and 1 large coffee daily. Alcohol: none Recreational substances: none PMF Past Medical History Medical History Chronic sinusitis Essential hypertension GERD (gastroesophageal reflux disease) Hyperlipidemia Impaired glucose tolerance Morbid obesity with BMI of 40.0-44.9, adult Sinusitis Tobacco abuse Surgical History Surgical History History of hernia repair History of repair of laceration Patient had his surgery for repair of a large area of laceration to his lateral right scalp History of sinus surgery History of tonsillectomy and adenoidectomy History of tympanostomy tube placement Family History Family History Father Alcoholism Mother Heart disease Thyroid disorder Tuberculosis As A Child Sibling Diabetes mellitus Grandparent Asthma Hypertension Social History Social History Social History: The patient is currently from his of 24 years. They had 4 children ranging in ages between 19 and 23 years old. He has been unemployed for a couple of years but used
[2024-01-26 23:18] VITALS: BMI 40.6
== END 2024-01-03 06:28 | disposition home or self-care (01) ==
PROVIDERS: PCP Internal Medicine; Visit Provider Nurse Practitioner
DX: G47.33 Obstructive sleep apnea (adult) (pediatric) (principal); G47.19 Other hypersomnia; I63.9 Cerebral infarction, unspecified; I10 Essential (primary) hypertension; Z68.41 Body mass index [BMI] 40.0-44.9, adult
CPT/HCPCS: 95811

== ENCOUNTER 2024-01-14 11:56 | Outpatient (CLI) | payer OTHER, SELFPAY ==
[2024-01-14 12:18] LABS: Basophils Absolute Auto 0.1 K/mm3 (0.0-0.1); Basophils Percent Auto 0.8 % (0.2-1.2); Eosinophils Absolute Auto 0.4 K/mm3 (0-0.3); Eosinophils Percent Auto 2.6 % (0-4.4); Hematocrit 48.4 % (42.0-52.0); Hemoglobin 16.1 g/dL (14.0-18.0); Immature Granulocyte Absolute 0.25 K/mm3 (0.00-0.031); Immature Granulocyte Percent A 1.7 % (0-0.5); Lymphocytes Absolute Auto 2.95 K/mm3 (0.9-3.2); Lymphocytes Percent Auto 19.6 % (18.3-44.2); Mean Corpuscular HGB Conc 33.3 g/dl (32-36); Mean Corpuscular Hemoglobin 28.5 pg (26-34); Mean Corpuscular Volume 85.8 fl (80-100); Mean Platelet Volume 8.9 fl (7.4-10.4); Monocytes Absolute Auto 1.4 K/mm3 (0.1-0.6); Monocytes Percent Auto 9.3 % (2.6-8.5); Platelet Count Result 372 k/mm3 (150-375); Red Blood Count 5.64 M/mm3 (4.6-6.20); Red Cell Distribution Width 12.9 % (11.5-14.5); White Blood Count 15.1 K/mm3 (4.5-10.0)
[2024-01-14 12:34] LABS: Alanine Aminotransferase 68 U/L (6-50); Albumin Level 4.2 g/dL (3.5-5.1); Alkaline Phosphatase 98 U/L (38-126); Anion Gap 6 mmol/L (4-12); Aspartate Amino Transferase 42 U/L (17-59); Bilirubin,Total 0.8 mg/dL (0.2-1.3); Blood Urea Nitrogen 13 mg/dL (9-20); Calcium 9.2 mg/dL (8.4-10.2); Carbon Dioxide 26 mmol/L (22-30); Chloride 106 mmol/L (98-107); Estimated Glomerular Filt Rate > 60; Glucose 142 mg/dL (65-110); Potassium 3.8 mmol/L (3.4-5.0); Sodium 138 mmol/L (137-145)
[2024-01-17 13:04] LABS: Protein S Antigen, Free 101 % normal (57-171)
== END 2024-01-14 11:57 | disposition home or self-care (01) ==
LOC: ANHLAB 11:58
PROVIDERS: PCP Internal Medicine; Visit Provider Internal Medicine Hematology & Oncology
DX: D68.69 Other thrombophilia (principal)
CPT/HCPCS: 36415; 80053; 85025; 85303; 85306

== ENCOUNTER 2024-07-23 13:41 | Outpatient (CLI) | payer OTHER, SELFPAY ==
[2024-07-23 19:46] LABS: Basophils Absolute Auto 0.2 K/mm3 (0.0-0.1); Basophils Percent Auto 1.2 % (0.2-1.2); Eosinophils Absolute Auto 0.7 K/mm3 (0-0.3); Eosinophils Percent Auto 4.6 % (0-4.4); Hematocrit 47.5 % (42.0-52.0); Hemoglobin 15.5 g/dL (14.0-18.0); Immature Granulocyte Absolute 0.25 K/mm3 (0.00-0.031); Immature Granulocyte Percent A 1.7 % (0-0.5); Lymphocytes Absolute Auto 3.47 K/mm3 (0.9-3.2); Mean Corpuscular HGB Conc 32.6 g/dl (32-36); Mean Corpuscular Hemoglobin 28.5 pg (26-34); Mean Corpuscular Volume 87.5 fl (80-100); Mean Platelet Volume 8.9 fl (7.4-10.4); Monocytes Absolute Auto 1.4 K/mm3 (0.1-0.6); Monocytes Percent Auto 9.5 % (2.6-8.5); Neutrophils Absolute Auto 8.5 K/mm3 (1.3-6.7); Platelet Count Result 427 k/mm3 (150-375); Red Blood Count 5.43 M/mm3 (4.6-6.20); Red Cell Distribution Width 13.2 % (11.5-14.5); White Blood Count 14.5 K/mm3 (4.5-10.0)
[2024-07-23 19:59] LABS: Alanine Aminotransferase 54 U/L (6-50); Albumin Level 4.2 g/dL (3.5-5.1); Alkaline Phosphatase 118 U/L (38-126); Anion Gap 4 mmol/L (4-12); Aspartate Amino Transferase 103 U/L (17-59); Bilirubin,Total 0.6 mg/dL (0.2-1.3); Blood Urea Nitrogen 12 mg/dL (9-20); Calcium 9.2 mg/dL (8.4-10.2); Carbon Dioxide 32 mmol/L (22-30); Chloride 102 mmol/L (98-107); Estimated Glomerular Filt Rate > 60; Glucose 131 mg/dL (65-110); Potassium 3.9 mmol/L (3.4-5.0); Sodium 138 mmol/L (137-145)
[2024-07-23 20:55] LABS: MALB Creatinine Ratio 47.2 mg/g (0-30); Microalbumin Urine Random 45.3 mg/L (0-16.7)
== END 2024-07-23 13:42 | disposition home or self-care (01) ==
LOC: ANHGOSHLAB 13:43
PROVIDERS: PCP Internal Medicine; Visit Provider Clinical Nurse Specialist
DX: Z12.5 Encounter for screening for malignant neoplasm of prostate (principal); I10 Essential (primary) hypertension; D72.829 Elevated white blood cell count, unspecified; R74.01 Elevation of levels of liver transaminase levels; E78.5 Hyperlipidemia, unspecified
CPT/HCPCS: 36415; 80053; 82043; 85025

== ENCOUNTER 2024-08-11 16:24 | Outpatient (CLI) | payer OTHER, SELFPAY ==
--- NOTE | ~2024-08-11 | US_ITS ---
LEFT LOWER EXTREMITY VENOUS ULTRASOUND Ordering provider: GILA Luna-Meet History: . OTHER SOFT TISSUE DISORDERS . Comparison: None. FINDINGS: --COMMON FEMORAL: Patent and free of thrombus. Normal compressibility, phasic flow and augmentation. --PROXIMAL SUPERFICIAL FEMORAL: Patent and free of thrombus. Normal compressibility, phasic flow and augmentation. --DISTAL SUPERFICIAL FEMORAL: Patent and free of thrombus. Normal compressibility, phasic flow and au gmentation. --POPLITEAL: Patent and free of thrombus. Normal compressibility, phasic flow and augmentation. --POSTERIOR TIBIAL: Not evaluated. --Peroneal vein: Not evaluated. IMPRESSION: Negative left lower extremity venous US. No deep vein thrombosis. Reviewed, dictated and finalized at location A. DING CONSTRUCTION IRONWORKER
== END 2024-08-11 16:25 | disposition home or self-care (01) ==
PROVIDERS: PCP Internal Medicine; Visit Provider Clinical Nurse Specialist
DX: M79.89 Other specified soft tissue disorders (principal)
CPT/HCPCS: 93971

== ENCOUNTER 2024-08-24 17:30 | Outpatient (CLI) | payer OTHER, SELFPAY ==
--- NOTE | ~2024-08-24 | XR_ITS ---
HISTORY: M54.50 - Low back pain, unspecified COMPARISON: None. TECHNIQUE: 2 view lumbar spine. FINDINGS: Lumbar vertebral bodies are normally aligned. There are 5 non-rib bearing lumbar vertebral bodies. Disc spaces and vertebral body heights are well maintained. There are no lytic or sclerotic lesions. Paraspinal soft tissues are unremarkable IMPRESSION: Unremarkable lumbar spine series, as detailed above. Reviewed, dictated and finalized at location A. INATION WELDER APPRENTICE
--- OUTSIDE RECORDS SUMMARY | 2024-08-27 14:50 | XMS_ITS | CONTINUITY OF CARE DOCUMENT ---
Author Name glenis galvin Address Unknown Organization [facility] Address [id number] [place] [address] [address] [place] [address] Phone [phone] Care Team Providers Care Fur Finisher Tailor Name Role Phone glenis galvin Unavailable Unavailable
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
--- OUTSIDE RECORDS SUMMARY | 2024-08-27 14:50 | XMS_ITS | Continuity of Care Document ---
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 Name Role Phone Kavon Escudero MD Unavailable Unavailable Allergies, Adverse Reactions, Alerts Substance Reaction Status Criticality No Known Allergies Active No Inform ation Medications Medication Instructions Dosage Effective Dates (start - stop) Status Comments Norvasc 10 mg tablet take 1 tablet by oral route every day 10 MG - Active [place] 10 mg-325 mg tablet take 1 by Oral route 4 times every day 1 - Active avoid driving or operate machines, Procedures Procedure Date OFFICE/OUTPATIENT VISIT, EST OFFICE/OUTPATIENT VISIT, EST OFFICE/OUTPATIENT VISIT, EST OFFICE/OUTPATIENT VISIT, EST OFFICE/OUTPATIENT VISIT, EST OFFICE/OUTPATIENT VISIT, EST OFFICE/OUTPATIENT VISIT, EST OFFICE/OUTPATIENT VISIT, EST -2014 PREV VISIT, EST, AGE 40-64 OFFICE/OUTPATIENT VISIT, EST OFFICE/OUTPATIENT VISIT, EST OFFICE/OUTPATIENT VISIT, EST OFFICE/OUTPATIENT VISIT, EST OFFICE/OUTPATIENT VISIT, EST OFFICE/OUTPATIENT VISIT, EST OFFICE/OUTPATIENT VISIT, EST OFFICE/OUTPATIENT VISIT, EST OFFICE/OUTPATIENT VISIT, EST OFFICE/OUTPATIENT VISIT, EST OFFICE/OUTPATIENT VISIT, EST OFFICE/OUTPATIENT VISIT, EST OFFICE/OUTPATIENT VISIT, EST OFFICE/OUTPATIENT VISIT, EST PREV VISIT, EST, AGE 18-39 OFFICE/OUTPATIENT VISIT, EST OFFICE/OUTPATIENT VISIT, EST OFFICE/OUTPATIENT VISIT, EST OFFICE/OUTPATIENT VISIT, EST OFFICE/OUTPATIENT VISIT, EST OFFICE/OUTPATIENT VISIT, EST OFFICE/OUTPATIENT VISIT, EST OFFICE/OUTPATIENT VISIT, EST OFFICE/OUTPATIENT VISIT, EST OFFICE/OUTPATIENT VISIT, EST OFFICE/OUTPATIENT VISIT, EST OFFICE/OUTPATIENT VISIT, EST OFFICE/OUTPATIENT VISIT, EST PREV VISIT, NEW, AGE 18-39 OFFICE/OUTPATIENT VISIT, NEW Advance Directives Directive Yes / No Effective Date File Name No Information Encounters Encounter Description Practice Location Reason(s) For Visit Diagnoses Date Provider Providers Copied on Encounter OFFICE/OUTPA TIENT VISIT, [facility], [address] [place], [place], [address], [place] tel:[phone] [facility] HTN (chief complaint) chornic pain (chief complaint) thyroid (chief complaint) hematuria (chief complaint) viral (chief complaint) Chronic pain syndromeEssential (primary) hypertensionViral infection, unspecifiedDisorder of thyroid, unspecified 6 Kota Spann [address] [place], [address] , [place]. tel:[phone] Referring Provider: Shari Khan [place], [address]. tel:[phone] OFFICE/OUTPA TIENT VISIT, [facility], [address] [place], [address], [place] tel:[phone] [facility] hematuria1 (chief complaint) back pain1 (chief complaint) Hematuria, unspecifiedLow back pain 5 Kota Spann [address] [place], [address] , [place]. tel:[phone] Referring Provider: Shari Khan [address], [place], [place], [address]. tel:[phone] OFFICE/OUTPA TIENT VISIT, [facility], [address], [place], [place], [address], [place] [phone] [facility] HTN (chief complaint) back pain1 (chief complaint) Other spondylosis, lumbar regionEssential (primary) hypertension 5 Kota Jacobson. [address], [place], [place], [address] , [place]. [phone] Referring Provider: Shari Khan [address], [place], [address]. tel:[phone] OFFICE/OUTPA TIENT VISIT, [facility], [address], [place], [place], [address], [place] tel:[phone] [facility] HTN (chief complaint) weight gain1 (chief complaint) back pain1 (chief complaint) tobacco (chief complaint) Dietary surveillance and counselingOpioid dependence, uncomplicatedEssent ial (primary) hypertensionOther spondylosis, lumbar regionAbnormal weight gain 5 Kota Jacobson. [address], [place], [place], [address] , [place]. [phone] Referring Provider: Shari Khan [address], [place], [address]. tel:[phone] OFFICE/OUTPA TIENT VISIT, [facility], [address], [place], [address], [place] tel:[phone] [facility] back pain (chief complaint) hTN (chief complaint) weight gain (chief complaint) tobacco (chief complaint) Dietary surveillance and counselingUnspecifi ed essential hypertensionLumbago Abnormal weight gainTobacco abuse 5 Kota Spann [address], [place], [place], [address] , [place]. [phone] Referring Provider: Shari Khan [address], [place], [place], [address]. tel:[phone] OFFICE/OUTPA TIENT VISIT, [facility], [address], [place], [address], [place] tel:[phone] [facility] hematuria (chief complaint) thyroid (chief complaint) back pain (chief complaint) Dietary surveillance and counselingThyroid disorderHematuriaUn specified essential hypertensionLumbago 5 Ktoa Jacobson. [address], [place], [place], [address] , [place]. tel:[phone] Referring Provider: Shari Khan [address], [place], [address]. tel:[phone] OFFICE/OUTPA TIENT VISIT, [facility], [address], [place], [place], [address], [place] tel:[phone] [facility] HTN (chief complaint) lumbago (chief complaint) LumbagoDietary surveillance and counselingUnspecifi ed essential hypertension 5 Kota Jacobson. [address], [place], [address] , [place]. [phone] Referring Provider: Shari Khan [address], [place], [place], [address]. tel:[phone] OFFICE/OUTPA TIENT VISIT, [facility], [address], [place], [address], [place] tel:[phone] [facility] lumbago (chief complaint) weight loss (chief complaint) Loss of weightLumbago 5 Kota Jacobson. [address], [place], [address] , [place]. tel:[phone] Referring Provider: Shari Khan [address], [place], [place], [address]. tel:[phone] PREV VISIT, EST, AGE 40-64 [facility], [address], [place], [address], [place] tel:[phone] [facility] Physical (chief complaint) Dietary surveillance and counselingRoutine Medical ExamRoutine Medical Exam 5 Kota Jacobson. [address], [place], [address] , [place]. [phone] Referring Provider: Shari Khan [address], [place], [address]. tel:[phone] OFFICE/OUTPA TIENT VISIT, [facility], [address], [place], [address], [place] tel:[phone] [facility] back pain (chief complaint) Dietary surveillance and counselingLumbago 5 Kota Jacobson. [address], [place], [address] , [place]. [phone] Referring Provider: Shari Khan [address], [place], [address]. tel:[phone] OFFICE/OUTPA TIENT VISIT, [facility], [address], [place], [place], [address], [place] tel:[phone] [facility] back pain (chief complaint) Dietary surveillance and counselingLumbagoOp ioid type dependence, unspecified use 5 Kota Jacobson. [address], [place], [place], [address] , [place]. tel:[phone] Referring Provider: Shari Khan [address], [place], [address]. tel:[phone] OFFICE/OUTPA TIENT VISIT, [facility], [address], [place], [address], [place] tel:[phone] [facility] back pain (chief complaint) HTN (chief complaint) Dietary surveillance and counselingLumbago 5 Kota Jacobson. [address], [place], [place], [address] , [place]. tel:[phone] Referring Provider: Kavon Escudero, [address], [place], [place], [address]. tel:[phone] OFFICE/OUTPA TIENT VISIT, [facility], [address], [place], [address], [place] tel:[phone] [facility] back pain (chief complaint) Dietary surveillance and counselingLumbago 5 Kota Jacobson. [address], [place], [address] , [place]. tel:[phone] Referring Provider: Kavon Escudero, [address], [place], [place], [address]. tel:[phone] OFFICE/OUTPA TIENT VISIT, [facility], [address], [place], [address], [place] tel:[phone] [facility] back pain (chief complaint) Dietary surveillance and counselingLumbago 4 Kota Jacobson. [address], [place], [place], [address] , [place]. tel:[phone] Referring Provider: Shari Khan [address], [place], [place], [address]. tel:[phone] OFFICE/OUTPA TIENT VISIT, [facility], [address], [place], [address], [place] tel:[phone] [facility] back pain (chief complaint) HTN (chief complaint) Dietary surveillance and counselingHypertens ion, UnspecifiedLumbago 4 Kota Jacobson. [address], [place], [address] , [place]. tel:[phone] Referring Provider: Shrai Khan [address], [place], [address]. tel:[phone] OFFICE/OUTPA TIENT VISIT, [facility], [address], [place], [address], [place] tel:[phone] [facility] back pain (chief complaint) LumbagoHypertension , UnspecifiedDietary surveillance and counseling 4 Kota Jacobson. [address], [place], [address] , [place]. tel:[phone] Referring Provider: Kavon Escudero, [address], [place], [place], [address]. tel:[phone] OFFICE/OUTPA TIENT VISIT, [facility], [address], [place], [address], [place] tel:[phone] [facility] back pain (chief complaint) Dietary surveillance and counselingLumbago 4 Kota Jacobson. [address], [place], [place], [address] , [place]. [phone] Referring Provider: Shari Khan [address], [place], [address]. tel:[phone] OFFICE/OUTPA TIENT VISIT, [facility], [address], [place], [place], [address], [place] tel:[phone] [facility] back pain (chief complaint) LumbagoDietary surveillance and counseling 4 Kota Jacobson. [address], [place], [address] , [place]. [phone] Referring Provider: Shari Khan [address], [place], [address]. tel:[phone] OFFICE/OUTPA TIENT VISIT, [facility], [address], [place], [place], [address], [place] tel:[phone] [facility] back pain (chief complaint) HTN (chief complaint) Dietary surveillance and counselingLumbagoHy pertension, Unspecified 4 Kota Jacobson. [address], [place], [address] , [place]. [phone] Referring Provider: Shari Khan [address], [place], [address]. tel:[phone] OFFICE/OUTPA TIENT VISIT, [facility], [address], [place], [address], [place] tel:[phone] [facility] back pain (chief complaint) Dietary surveillance and counselingLumbagoHy pertension, Unspecified 4 Kota Jacobson. [address], [place], [address] , [place]. tel:[phone] Referring Provider: Shari Khan [address], [place], [address]. tel:[phone] OFFICE/OUTPA TIENT VISIT, [facility], [address], [place], [address], [place] tel:[phone] [facility] back pain (chief complaint) Dietary surveillance and counselingLumbago 4 Kota Jacobson. [address], [place], [address] , [place]. tel:[phone] Referring Provider: Shari Khan [address], [place], [address]. tel:[phone] OFFICE/OUTPA TIENT VISIT, [facility], [address], [place], [address], [place] tel:[phone] [facility] back pain (chief complaint) HTN (chief complaint) Dietary surveillance and counselingHypertens ion, UnspecifiedLumbago 4 Kota Jacobson. [address], [place], [address] , [place]. tel:[phone] Referring Provider: Shari Khan [address], [place], [address]. tel:[phone] OFFICE/OUTPA TIENT VISIT, [facility], [address], [place], [address], [place] tel:[phone] [facility] back pain (chief complaint) Dietary surveillance and counselingLumbago 0 4 Kota Spann [address], [place], [address] , [place]. tel:[phone] Referring Provider: Shari Khan [address], [place], [place], [address]. tel:[phone] PREV VISIT, EST, AGE 18-39 [facility], [address], [place], [place], [address], [place] [phone] [facility] Physical (chief complaint) Dietary surveillance and counselingRoutine Medical ExamLumbagoHyperten raymon, UnspecifiedRoutine Medical Exam 4 Kota Jacobson. [address], [place], [place], [address] , [place]. tel:[phone] Referring Provider: Shari Khan [address], [place], [place], [address]. tel:[phone] OFFICE/OUTPA TIENT VISIT, [facility], [address], [place], [place], [address], [place] tel:[phone] [facility] back pain (chief complaint) anxiety (chief complaint) HTN (chief complaint) Dietary surveillance and counselingLumbagoMa faisal depressive affective disorder, single episode, mild degreeHypertension, Unspecified 4 Kota Jacobson. [address], [place], [place], [address] , [place]. tel:[phone] Referring Provider: Shari Khan [address], [place], [place], [address]. tel:[phone] OFFICE/OUTPA TIENT VISIT, EST [facility], [address], [place], [address], [place] tel:[phone] [facility] back pain (chief complaint) depression (chief complaint) Dietary surveillance and counselingLumbagoMa faisal depressive affective disorder, single episode, mild degree 3 Kota Jacobson. [address], [place], [address] , [place]. tel:[phone] Referring Provider: Kavon Escudero [address], [place], [place], [address]. tel:[phone] OFFICE/OUTPA TIENT VISIT, [facility], [address], [place], [address], [place] [phone] [facility] back pain (chief complaint) depression (chief complaint) HTN (chief complaint) Dietary surveillance and counselingLumbagoHy pertension, UnspecifiedMajor depressive affective disorder, single episode, mild degree 3 Kota Jacobson. [address], [place], [address] , [place]. tel:[phone] Referring Provider: Shari Khan [address], [place], [place], [address]. tel:[phone] OFFICE/OUTPA TIENT VISIT, [facility], [address], [place], [address], [place] tel:[phone] [facility] back pain (chief complaint) leukocytos is (chief complaint) Dietary surveillance and counselingLumbagoLE UKOCYTOSIS NOS 0 3 Kota Jacobson. [address], [place], [address] , [place]. tel:[phone] Referring Provider: Shari Khan [address], [place], [address]. tel:[phone] OFFICE/OUTPA TIENT VISIT, [facility], [address], [place], [address], [place] [phone] [facility] back pain (chief complaint) HTN (chief complaint) WBC (chief complaint) Dietary surveillance and counselingLumbagoHy pertension, UnspecifiedLEUKOCYT OSIS NOS 3 Kota Jacobson. [address], [place], [address] , [place]. tel:[phone] Referring Provider: Shari Khan [address], [place], [address]. tel:[phone] OFFICE/OUTPA TIENT VISIT, [facility], [address], [place], [address], [place] tel:[phone] [facility] back pain (chief complaint) Dietary surveillance and counselingLumbago 3 Kota Jacobson. [address], [place], [address] , [place]. tel:[phone] Referring Provider: Shari Khan [address], [place], [place], [address]. tel:[phone] OFFICE/OUTPA TIENT VISIT, [facility], [address], [place], [address], [place] tel:[phone] [facility] back pain (chief complaint) Dietary surveillance and counselingLumbago 3 Kota Jacobson. [address], [place], [place], [address] , [place]. tel:[phone] Referring Provider: Shari Khan [address], [place], [address]. tel:[phone] OFFICE/OUTPA TIENT VISIT, [facility], [address], [place], [address], [place] tel:[phone] [facility] HTN (chief complaint) back pain (chief complaint) Dietary surveillance and counselingLumbagoHy pertension, Unspecified 3 Kota Jacobsno. [address], [place], [address] , [place]. tel:[phone] Referring Provider: Shari Khan [address], [place], [address]. tel:[phone] OFFICE/OUTPA TIENT VISIT, [facility], [address], [place], [address], [place] tel:[phone] [facility] back pain (chief complaint) leukocytos is (chief complaint) HTN (chief complaint) Dietary surveillance and counselingLEUKOCYTO SIS NOSHypertension, UnspecifiedLumbago 3 Kota Jacobson. [address], [place], [address] , [place]. tel:[phone] Referring Provider: Kavon Escudero, [address], [place], [place], [address]. tel:[phone] OFFICE/OUTPA TIENT VISIT, [facility], [address], [place], [address], [place] tel:[phone] [facility] back pain (chief complaint) Dietary surveillance and counselingLumbago Nov- 3 Kota Jacobson. [address], [place], [address] , [place]. tel:[phone] Referring Provider: Shari Khan [address], [place], [address]. tel:[phone] OFFICE/OUTPA TIENT VISIT, [facility], [address], [place], [address], [place] tel:[phone] [facility] back pain (chief complaint) HTN (chief complaint) Dietary surveillance and counselingLumbagoHy pertension, Unspecified Oct- 3 Kota Jacobson. [address], [place], [address] , [place]. [phone] Referring Provider: Shari Khan [address], [place], [address]. tel:[phone] OFFICE/OUTPA TIENT VISIT, [facility], [address], [place], [address], [place] [phone] [facility] back pain (chief complaint) HTN (chief complaint) Dietary surveillance and counselingLumbagoHy pertension, Unspecified Fe- 3 Kota Jacobson. [address], [place], [address] , [place]. tel:[phone] Referring Provider: Shari Khan [address], [place], [address]. tel:[phone] PREV VISIT, NEW, AGE 18-39 [facility], [address], [place], [place], [address], tel:[phone] [facility] Physical (chief complaint) Dietary surveillance and counselingRoutine Medical ExamLumbagoHymarvin ennis, UnspecifiedRoutine Medical Exam 3 Kota Jacobson. [address], [place], [place], [address] , [place]. tel:[phone] Referring Provider: Kavon Escudero [address], [place], [address]. tel:[phone] Family History Family Member Type Diagnosis Age At Onset Brother Problem (finding) Diabetes mellitus Father Problem (finding) Unknown Disease Mother Problem (finding) Osteoporosis Mother Problem (finding) RA Payers Payer name Insurance type Covered republican ID Authoriza tion(s) No Information Social History Type Description Quantity Date Captured Comments Alcohol Use Details No Caffeine Use Details Unknown Tobacco Use Status Occasional cigarette smoker Smoking Status Heavy tobacco smoker Sex Male Vital Signs Date / Time: Height Weight BMI Pulse Rate Blood Pressure Temperature Respiratory Rate Body Surface Area Head Circumference BMI percentile Pulse Ox Inhaled Ox 6:55 AM 72.00 in 228.00 lbs 30.9 2 kg/m eter (2) 89 /min 140/90 mm[Hg] 98.5 F 18 /min Chief Complaint And Reason For Visit From encounter dated '09/01/2015 18:30'. HTN (chief complaint). Description: Pt has HTN. Pt is taking norvac and his BP is borderlne today. Pt denies any chest pain or headche chornic pain (chief complaint). Description: Pt has chronic back pain. Pt deniesany loss of bowel or bladder control. Pt has not done MRI yet. Pt c/o mild sciatica and numnbess. Pt takes norco for pain. Pt failed OTC NSAID thyroid (chief complaint). Description: Pt still has not done thyroid lab yet. Pt is very noncompliaint. Pt denies any palpitation, weight gain or loss hematuria (chief complaint). Description: Pt denies any UTI symptoms. Pt still has not done UA yet Pt denies any fever, chill, flank pain viral (chief complaint). Description: Pt recently went to ER for apparent viral infection. Pt had nausa, vomiting, and diarrhea Pt had to get IV fluid and lab work. Pt felt better now. Pt denies any nausea, vomiting, diarrhea Pt is able to keep food and fluid down Plan Of Treatment Date Type Action Status Goal Td vaccine. Due on 16 due Goal Tdap. Due on due Goal Depression screening. Due on due Goal Td vaccine. Due on due Goal Depression screening. Due on due Goal Tdap. Due on due Goal Tdap. Due on due Goal Depression screening. Due on due Goal Td vaccine. Due on due Goal Td vaccine. Due on due Goal Depression screening. Due on due Goal Tdap. Due on due Goal Td vaccine. Due on due Goal Depression screening. Due on due Goal Tdap. Due on due Goal Td vaccine. Due on due Goal Tdap. Due on due Goal Depression screening. Due on due Goal Td vaccine. Due on 15 due Goal Depression screening. Due on due Goal Tdap. Due on due Goal Depression screening. Due on due Goal Td vaccine. Due on 15 due Goal Tdap. Due on due Goal Tobacco cessation counseling completed Goal Tobacco cessation counseling completed Goal Tobacco cessation counseling completed Goal Tobacco cessation counseling completed Goal Tobacco cessation counseling completed Goal Tobacco cessation counseling completed Goal Tobacco cessation counseling completed Goal Tobacco cessation counseling completed Goal Tobacco cessation counseling completed Goal Tobacco cessation counseling completed Goal Tobacco cessation counseling completed Goal Tobacco cessation counseling completed Goal Tobacco cessation counseling completed Goal Tobacco cessation counseling completed Goal Tobacco cessation counseling completed Goal Tobacco cessation counseling completed Goal Tobacco cessation counseling completed Goal Tobacco cessation counseling completed Goal Tobacco cessation counseling completed Goal Tobacco cessation counseling completed Goal Tobacco cessation counseling completed Goal Tobacco cessation counseling completed Goal Tobacco cessation counseling completed Goal Tobacco cessation counseling completed Goal Tobacco cessation counseling completed Goal Tobacco cessation counseling completed Goal Tobacco cessation counseling completed Goal Tobacco cessation counseling completed Referral Ordered: MRI LUMBAR SPINE W/O DYE ordered History Of Present Illness Encounter Date Complaint History Of Prese nt Illness HTN Pt has HTN. Pt i s taking norvac and his BP is borderlne today. Pt denies any chest pain or headche chornic pain Pt has chronic b ack pain. Pt deniesany loss of bowel or bladder control. Pt has not done MRI yet. Pt c/o mild sciatica and numnbess. Pt takes norco for pain. Pt failed OTC NSAID thyroid Pt still has not done thyroid lab yet. Pt is very noncompliaint. Pt denies any palpitation, weight gain or loss hematuria Pt denies any UT I symptoms. Pt still has not done UA yet Pt denies any fever, chill, flank pain viral Pt recently went to ER for apparent viral infection. Pt had nausa, vomiting, and diarrhea Pt had to get IV fluid and lab work. Pt felt better now. Pt denies any nausea, vomiting, diarrhea Pt is able to keep food and fluid down Dec-15-2015 back pain1 Pt has chronic l ow back pain. Pt c/o sciatica. Pt denies any leg numbness. Pt has not done MRI yet. Pt denies any worsening pain. Pt has 7/10 sharp low back pain daily hematuria1 Pt has history o f hematuria. Pt denies any UTI symptoms Pt has not done UA yet back pain1 Pt has chronic l ow back pain. Pt has 7/10 back pain. pt has bilateral scaitica. Pt denies any loss of bowel or bladder control. Pt denies any worsening pain. Pt is working every day and he is having problem with his . He has not had time for the MRI yet. HTN Pt has HTN. Pt t akes norvasc 10 mg daily. Pt denies any chest pain or headache tobacco Pt curently smok es about one pack per day. Pt has been taking wellubtrin and he used to smoke 2 PPD. Pt denies any SOB back pain1 Pt has chronic L BP. Pt denies any loss of bowel or bladder control. Pt notices mild bilateral sciatica. Pt denies any numnbes. Pt still has not done MRI yet weight gain1 Pt has been gain ing weight. Pt denies any appetite change. Pt is not very active HTN Pt takes norvac 5 mg daily. His BP is still high. Pt denies any chest pain or headache tobacco Pt smokes about 1.5 PPD Pt denies any SOB weight gain Pertinent negati ves include constipation, dyspnea, fatigue, muscle weakness and vision changes. Additional information: Pt gained some weight since last visit. Pt does not exercise. Pt does not eat healthy. hTN Pt has mild HTN. Pt takes norvas and his BP is good today. back pain Additional infor mation: Pt has chronic LBP. Pt denies any loss of bowel or bladder control. Pt has 7/10 pain daily. Pt has not done MRI yet. Pt denie any worsening apin. back pain Additional infor mation: Pt has chornic low ack pain. Pt has sciatica Pt denies any loss of bowel or bladder control. Pt denies any worsening pain. Pt has constant7/10 dull ache. thyroid Pt has slightly suppressed thyroid. Pt denies any palpitation, chest pain headache hematuria Pt has mild nate turia. Pt denies any UTI symptoms. Pt denies any flank pain lumbago Pt has chornic l ow back pain. Pt denies any loss of bowel or bladder control. Pt has not done MRI yet HTN Pt has HTN. Pt d enies any chest pain or headache. Pt used to take BP med but has not taken for a while. lumbago Pt has chornic L BP Pt denies any loss of bowel or bladder control. 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 weight loss Pertinent negati ves include cold intolerance, constipation, diarrhea, heat intolerance, irregular heartbeat/palpitations, polyuria, vision changes and vomiting. Additional information: Pt lost some weight recenlty. Pt denies any appetite loss or abd pain. Pt denies any GI bleeding. Instructions Date Instruction Additional Infor mation Prescribed Activity and Exercise Education Related to Dietary Surveillance and Counseling Prescribed Diet Educ ation/Lifestyle Education Regarding Diet Related to Dietary Surveillance and Counseling Prescribed Diet Educ ation/Lifestyle Education Regarding Diet Related to Dietary Surveillance and Counseling Prescribed Activity and Exercise Education Related to Dietary Surveillance and Counseling Prescribed Activity and Exercise Education Related to Dietary Surveillance and Counseling Prescribed Diet Educ ation/Lifestyle Education Regarding Diet Related to Dietary Surveillance and Counseling Prescribed Activity and Exercise Education Related to Dietary Surveillance and Counseling Prescribed Diet Educ ation/Lifestyle Education Regarding Diet Related to Dietary Surveillance and Counseling Prescribed Activity and Exercise Education Related to Dietary Surveillance and Counseling Prescribed Diet Educ ation/Lifestyle Education Regarding Diet Related to Dietary Surveillance and Counseling Prescribed Activity and Exercise Education Related to Dietary Surveillance and Counseling Prescribed Diet Educ ation/Lifestyle Education Regarding Diet Related to Dietary Surveillance and Counseling Physical activity counseling Rel ated to Dietary surveillance counseling Decrease caloric intake Related to Dietary surveillance counseling Physical activity counseling Rel ated to Dietary surveillance counseling Decrease caloric intake Related to Dietary surveillance counseling Physical activity counseling Rel ated to Dietary surveillance counseling Decrease caloric intake Related to Dietary surveillance counseling Decrease caloric intake Related to Dietary surveillance counseling Physical activity counseling Rel ated to Dietary surveillance counseling Decrease caloric intake Related to Dietary surveillance counseling Physical activity counseling Rel ated to Dietary surveillance counseling Physical activity counseling Rel ated to Dietary surveillance counseling Decrease caloric intake Related to Dietary surveillance counseling Decrease caloric intake Related to Dietary surveillance counseling Physical activity counseling Rel ated to Dietary surveillance counseling Dietary counseling Related to Di etary surveillance counseling Decrease caloric intake Related to Dietary surveillance counseling Dietary counseling Related to Di etary surveillance counseling Decrease caloric intake Related to Dietary surveillance counseling Dietary counseling Related to Di etary surveillance counseling Decrease caloric intake Related to Dietary surveillance counseling Dietary counseling Related to Di etary surveillance counseling Decrease caloric intake Related to Dietary surveillance counseling Dietary counseling Related to Di etary surveillance counseling Decrease caloric intake Related to Dietary surveillance counseling Dietary counseling Related to Di etary surveillance counseling Decrease caloric intake Related to Dietary surveillance counseling Decrease caloric intake Related to Dietary surveillance counseling Dietary counseling Related to Di etary surveillance counseling Dietary counseling Related to Di etary surveillance counseling Decrease caloric intake Related to Dietary surveillance counseling Dietary counseling Related to Di etary surveillance counseling Decrease caloric intake Related to Dietary surveillance counseling Decrease caloric intake Related to Dietary surveillance counseling Dietary counseling Related to Di etary surveillance counseling Dietary counseling Related to Di etary surveillance counseling Decrease caloric intake Related to Dietary surveillance counseling Dietary counseling Related to Di etary surveillance counseling Decrease caloric intake Related to Dietary surveillance counseling Dietary counseling Related to Di etary surveillance counseling Decrease caloric intake Related to Dietary surveillance counseling Dietary counseling Related to Di etary surveillance counseling Decrease caloric intake Related to Dietary surveillance counseling Dietary counseling Related to Di etary surveillance counseling Decrease caloric intake Related to Dietary surveillance counseling Dietary counseling Related to Di etary surveillance counseling Decrease caloric intake Related to Dietary surveillance counseling Dietary counseling Related to Di etary surveillance counseling Decrease caloric intake Related to Dietary surveillance counseling Dietary counseling Related to Di etary surveillance counseling Decrease caloric intake Related to Dietary surveillance counseling Decrease caloric intake Related to Dietary surveillance counseling Dietary counseling Related to Di etary surveillance counseling Dietary counseling Related to Di etary surveillance counseling Decrease caloric intake Related to Dietary surveillance counseling Dietary counseling Related to Di etary surveillance counseling Decrease caloric intake Related to Dietary surveillance counseling Dietary counseling Related to Di etary surveillance counseling Decrease caloric intake Related to Dietary surveillance counseling Assessments Type Assessment Date assessment Chronic pain syndrome 6 assessment Essential (primary) hypertension assessment Viral infection, unspecified Aug assessment Disorder of thyroid, unspecified Mental Status Date Cognitive Assessment Orientation - [place] ed to time, place, person, situation.
--- OUTSIDE RECORDS SUMMARY | 2024-08-27 14:50 | XMS_ITS | Clinical Summary ---
Author Organization [facility] Address [address] [address] Care Team Providers Care Coal Getter Name Role Phone Felix Teixeira DO Primary Care Provider Allergies No known active allergies Medications amLODIPine (NORVASC) 5 mg tablet Take 5 mg by mouth daily. Active aspirin (ECOTRIN EC) 81 mg Tablet, Delayed Release (E.C.) Take 81 mg by mouth daily. Active clopidogreL (PLAVIX) 75 mg Tablet Take 75 mg by mouth. Active atorvastatin (LIPITOR) 20 mg tablet Take 20 mg by mouth daily. Active losartan (COZAAR) 100 mg tablet Take 100 mg by mouth daily. Active Active Problems Problem Noted Date Diagnosed Date Leukocytosis (leucocytosis) 08/29/2021 Encounters Date Type Department Care Team Description 08/25/2024 External Device Data [facility] Provider, Abstract 08/18/2024 External Device Data [facility] Provider, Abstract 06/08/2024 External Device Data [facility] Provider, Abstract 06/03/2024 External Device Data [facility] Provider, Abstract from Last 3 Months Family History Medical History Relation Name Comments Diabetes Brother Heart Disease Mother Relation Name Status Comments Brother Daughter Alive Father Alive Mother Alive Son 1 Alive Son 2 Alive Son 3 Alive Social History Tobacco Use Types Packs/Day Years Used Date Smoking Tobacco: Every Day Cigarettes 1 26.1 Started: 1998 Smokeless Tobacco: Never Tobacco Cessation:Ready to Q uit: Not Asked; Counseling Given: Not Answered Alcohol Use Standard Drinks/Week Comments Yes 0 (1 standard drink = 0.6 oz pur e alcohol) Sex and Gender Information Value Date Recorded Sex Assigned at Not on file Legal Sex Male 2:46 PM CDT Gender Identity Not on file Sexual Orientation Not on file Last Filed Vital Signs Vital Sign Reading Time Taken Comments Blood Pressure 142/81 01/14/2024 10:35 AM CDT Pulse 92 01/14/2024 10:33 AM CDT Temperature 35.9 ??C (96.6 ??F) 01/14/2024 10:33 AM C DT Respiratory Rate 16 01/14/2024 10:33 AM CDT Oxygen Saturation 96% 01/14/2024 10:33 AM CDT Inhaled Oxygen Concentration - - Weight 139.7 kg (308 lb) 01/14/2024 10:33 AM CDT Height 182.9 cm (6') 01/14/2024 10:33 AM CDT Body Mass Index 41.77 01/14/2024 10:33 AM CDT Plan of Treatment Health Maintenance Due Date Last Done Comments Pre-Diabetes and Diabetes Screening 1975 PNEUMOCOCCAL VACCINE 0-64 YEARS (1 of 2 - PCV) 980 DTAP/TDAP/TD VACCINES (1 - Tdap) 1993 HEPATITIS B VACCINES (1 of 3 - 19+ 3-dose series) 07/07 COLORECTAL SCREENING 2019 Colorectal Cancer Screening 2019 FIT-DNA Q 3 years 2019 FIT/FOBT Q 1 year 2019 Flex Sig/CT Colonography Q 5 years 2019 INFLUENZA VACCINE (#1) 2024 Lung Cancer Screening 2024 ZOSTER VACCINE (1 of 2) 2024 Insurance [facility] MEDICAID Care Teams Coal Getter Relationship Specialty Start Date End Date Felix Teixeira DO [address] [facility] [address] [place] [id number] PCP - General Internal Medicine 01/14/24
--- OUTSIDE RECORDS SUMMARY | 2024-08-27 14:50 | XMS_ITS | Clinical Summary ---
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 This disclosure is being madepursuant to the Care Everywhere program and may not contain all information available regarding this patient. Last updated 18.[facility] [place] Allergies No known active allergies Medications * Be aware that medications may not be up to date on this document. Alwaysverify current medications with the patient. Medication Sig Dispensed Refills Start Date End Date Status cyclobenzaprine (FLEXERIL) 10 MG tablet Take 1 tablet by mouth 3 times daily as needed for Muscle Spasms 30 tablet 03/17/2018 Active Active Problems No known active problems Family History Relation Name Status Comments Father Alive Mother Alive Social History Tobacco Use Types Packs/Day [...] Mass Index 31.6 04/03/2018 11:54 AM CDT Plan of Treatment Health Maintenance Due Date Last Done Comments COLOGUARD (AGES 45-75) - COL ON CA SCREENING 1974 COLON MONITORING 1974 COLONOSCOPY - COLON CA SCREENING 1974 CT COLONOGRAPHY - COLON CA SCREENING 1974 Colorectal Cancer Screening 1974 FIT - COLON CA SCREENING 1974 FLEX SIG - COLON CA SCREENING 1974 LIPID TESTING 1974 HIV SCREENING 1989 HEPATITIS C SCREENING 07/29/1992 DTAP/TDAP/TD VACCINES (1 - Tdap) 1993 HEPATITIS B VACCINE (1 of 3 - 19+ 3-dose series) 1993 PNEUMOCOCCAL VACCINE 50+ (1 of 2 - PCV) 1993 PNEUMOCOCCAL VACCINE (1 of 2 - PCV) 1993 SCREENING FOR DIABETES 03/17/2021 03/17/2018 COVID-19 VACCINE (1 - 2023-2 5 season) 2024 INFLUENZA VACCINE (#1) 2024 ZOSTER VACCINE (1 of 2) 2024 DEPRESSION SCREENING 08/05/2024 HIB VACCINE Aged Out No longer eligi ble based on patient's age to complete this topic HPV VACCINE Aged Out No longer eligi ble based on patient's age to complete this topic MENINGOCOCCAL (Group B) VACCINE Aged Out No longer eligible based on patient's age to complete this topic MENINGOCOCCAL VACCINE Aged Out No kash navarro eligible based on patient's age to complete this topic Procedures Procedure Name Priority Date/Time Associated Diagnosis Comments BASIC METABOLIC PANEL (CALCIUM TOTAL) STAT 03/17/2018 8:03 PM CDT from Last 3 Months or Most Recently Relevant to Health Maintenance Results * (ABNORMAL) BASIC METABOLIC PANEL (CALCIUM TOTAL) (03/17/2018 8:03 PM CDT) BUN 11 7 - 26 mg/dL 03/17/2018 8:30 PM [facility] Creatinine 0.9 0.6 - 1.2 mg/dL 03/17/2018 8:30 PM [facility] Sodium 143 136 - 145 mmol/L 03/17/2018 8:30 PM [facility] Potassium 3.4(L) 3.5 - 4.5 mmol/L 03/17/2018 8:30 PM [facility] Chloride 108(H) 98 - 107 mmol/L 03/17/2018 8:30 PM [facility] CO2 22 22 - 29 mmol/L 03/17/2018 8:30 PM [facility] Glucose 137(H) 70 - 115 mg/dL 03/17/2018 8:30 PM [facility] Calcium 9.4 8.4 - 10.2 mg/dL 03/17/2018 8:30 PM [facility] Anion Gap 16 8 - 18 03/17/2018 8:30 PM [facility] BUN/Creatinine Ratio 12 7 - 23 03/17/2018 8:30 PM [facility] Osmolality Calculated 298 270 - 300 mOsm/kg 03/17/2018 8:30 PM [facility] eGFR >60 >60 mL/min/1.7 3 m2 03/17/2018 8:30 PM [facility] Blood BLOOD SPECIMEN / Unknown Venipuncture / Unknown 03/17/2018 8:03 PM CDT 03/17/2018 8:06 PM [facility] Meagan Bain MD LAB - CHEMISTRY [facility]IA [facility] Organization Address City/State/ZIP Co de Phone Number [facility] [address] [place] [address] from Last 3 Months or Most Recently Relevant to Health Maintenance
--- OUTSIDE RECORDS SUMMARY | 2024-08-27 14:50 | XMS_ITS | Referral Summary ---
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 This disclosure is being madepursuant to the Care Everywhere program and may not contain all information available regarding this patient. Last updated 18.[facility] [place] Allergies No known active allergies Medications * Be aware that medications may not be up to date on this document. Alwaysverify current medications with the patient. Medication Sig Dispensed Refills Start Date End Date Status cyclobenzaprine (FLEXERIL) 10 MG tablet Take 1 tablet by mouth 3 times daily as needed for Muscle Spasms 30 tablet 03/17/2018 Active Active Problems No known active problems Social [...] 04/03/2018 11:54 AM CDT Plan of Treatment Not on file Procedures Procedure Name Priority Date/Time Associated Diagnosis Comments BASIC METABOLIC PANEL (CALCIUM TOTAL) STAT 03/17/2018 8:03 PM CDT from Last 3 Months or Most Recently Relevant to Health Maintenance Results * (ABNORMAL) BASIC METABOLIC PANEL (CALCIUM TOTAL) (03/17/2018 8:03 PM CDT) BUN 11 7 - 26 mg/dL 03/17/2018 8:30 PM [facility] Creatinine 0.9 0.6 - 1.2 mg/dL 03/17/2018 8:30 PM [facility] Sodium 143 136 - 145 mmol/L 03/17/2018 8:30 PM [facility] Potassium 3.4(L) 3.5 - 4.5 mmol/L 03/17/2018 8:30 PM [facility] Chloride 108(H) 98 - 107 mmol/L 03/17/2018 8:30 PM [facility] CO2 22 22 - 29 mmol/L 03/17/2018 8:30 PM [facility] Glucose 137(H) 70 - 115 mg/dL 03/17/2018 8:30 PM [facility] Calcium 9.4 8.4 - 10.2 mg/dL 03/17/2018 8:30 PM [facility] Anion Gap 16 8 - 18 03/17/2018 8:30 PM [facility] BUN/Creatinine Ratio 12 7 - 23 03/17/2018 8:30 PM [facility] Osmolality Calculated 298 270 - 300 mOsm/kg 03/17/2018 8:30 PM [facility] eGFR >60 >60 mL/min/1.7 3 m2 03/17/2018 8:30 PM CDT [facility] Blood BLOOD SPECIMEN / Unknown Venipuncture / Unknown 03/17/2018 8:03 PM CDT 03/17/2018 8:06 PM CDT Meagan Bain MD LAB - CHEMISTRY [facility]IA [facility] [address] [place] [address], [facility] [phone] from Last 3 Months or Most Recently Relevant to Health Maintenance [place] Personal/Family Self [address] [place] [address]
== END 2024-08-24 17:31 | disposition home or self-care (01) ==
PROVIDERS: PCP Internal Medicine; Visit Provider Clinical Nurse Specialist
DX: M54.50 Low back pain, unspecified (principal)
CPT/HCPCS: 72100